=== PATIENT | female | born 1975 | race Caucasian/White ===

== ENCOUNTER → 2018-01-11 | Outpatient (CLI) | payer BC ==
[~2018-01-11] MED LIST: ALBU8.5H8 IH; BUDE10.2 IH; GADOBUTROL 10 MMOL/10 ML VIAL ONE; HYDR-3245 PO; LISI-167 PO; MONT10TA6 PO; MULT-26 PO; RIVA20TA PO; TIOT18CA INH
== END | disposition home or self-care (01) ==
LOC: CFH 13:12
PROVIDERS: ATTEND Neurological Surgery
DX: G93.0 Cerebral cysts (principal)
CPT/HCPCS: 70553; 82565; A9585